=== PATIENT | male | born 1995 | race Caucasian/White ===

== ENCOUNTER 2020-06-14 16:59 | Outpatient (REF) | payer BC, SELFPAY ==
[2020-06-17 01:50] LABS: Patient Race White; SARS-CoV-2 RNA Undetected (Undetected)
== END 2020-06-14 17:19 ==
LOC: NCHCN 16:59
PROVIDERS: PCP Nurse Practitioner Family; Visit Provider Nurse Practitioner Family
DX: Z20.828 Contact with and (suspected) exposure to other viral communicable diseases (principal)
CPT/HCPCS: U0003

== ENCOUNTER 2021-11-22 10:18 | Emergency (ER) | payer BC, SELFPAY ==
[2021-11-22 10:22] VITALS: BP 143/88; PULSE 82; RESP 16; TEMP 37; O2SAT 99
--- NOTE | 2021-11-22 10:45 | DI.CT_ITS ---
Exam(s) CT HEAD WO EXAM: CT HEAD WO CLINICAL HISTORY: Bilateral temporal head. TECHNIQUE: Imaging Protocol: Axial computed tomography images with coronal and sagittal reformatted images were created and reviewed COMPARISON: No exams were available for comparison FINDINGS: Ventricles and Extra axial spaces: Normal in size and morphology for the patient's age. Hemorrhage: None. Cerebral parenchyma: Normal. Midline shift: None. Brainstem/Cerebellum: Normal. Calvarium: Normal. Visualized Paranasal sinuses/Mastoids: Mucosal thickening in the maxillary sinuses bilaterally. Ther e are mucous retention cysts or polyps in the maxillary sinuses bilaterally. The remaining visualize d paranasal sinuses and mastoid air cells are clear. Soft Tissues: Unremarkable. IMPRESSION: 1. No acute intracranial process. 2. Bilateral maxillary sinus disease. 3. Results of this exam have been verbally communicated with provider. RADIATION DOSE DELIVERED: 784.55mGy.cm Total DLP DATA REPOSITORY: All CT scans at this facility are submitted to the National Radiology Data Registry (NRDR) Dose Index Registry (DIR) with the [employer] (ACR). RADIATION OPTIMIZATION: All CT scans at this facility use at least one of these dose optimization te chniques: automated exposure control; mA and/or kV adjustment per patient size (includes targeted exa ms where dose is matched to clinical indication); or iterative reconstruction.
--- NOTE | 2021-11-22 10:48 | ED.GENADUL_ITS ---
Discharge Plan Disposition Patient Disposition: HOME Condition: Stable Discharge Details Chief Complaint: Headache Clinical Impression: Cephalgia Primary Care Provider: Ibrahima Casey ED Provider: Angus Howard Home Meds and New Rx's Prescriptions: No Action No Known Home Meds 0RF Discharge Instructions Instructions: General Headache (ED) Additional Instructions: Laboratory values and CT imaging are both unremarkable for any obvious emergent process. I recommend [id number] medications as directed for symptomatic control. Please watch for new or worsening symptoms and return to the ER for any concerns. I provided you with the name and contact information for our local neurology team whom I recommend you contact discuss your ongoing symptoms and set up outpatient appointment for reevaluation and further investigation of your current symptoms. Referrals: Parisa Parker MD [ [facility] STAFF PHYSICIAN] - Medical Decision Making 26-year-old gentleman, denies significant past medical history, presenting to the ER reporting intermittent headache for at least 3 weeks. Tylenol helps some. He states today he looked in the mirror and thought that his bilateral temporal area looked sunken in. He reports discomfort is a dull ache, 2 or 3 out of 10. He denies any recent illness or trauma, visual change, neck pain, chest pain, shortness of breath, vomiting, numbness, tingling, weakness, change in bowel or bladder function. Patient denies any family history of TIA, diss ection, migraines, etc. Clinically he appears well, nontoxic and is neurologically intact. Given he reports bilateral temporal pain, will obtain routine laboratory values including inflammatory markers although extremely low suspicion for temporal arteritis. Low suspicion for acute intracranial process but given he has never had a work-up for cephalgia in the past, will obtain CT imaging of the head as well. If both unremarkable, will recommend [id number] medications such as Excedrin Migraine and outpatient neurology follow-up. Patient comfortable with this plan and has no additional questions or concerns Patient remains neurologically intact. He appears well, nontoxic. Upon reevaluation he reports that the Motrin has maybe helped a little with discomfort. He is using his cell phone without difficulty. Laboratory values are grossly unremarkable. CT imaging unremarkable for acute intracranial process. Does have sinus disease clinically not presenting with symptoms consistent of sinusitis Discussed laboratory values and CT imaging with patient. He is relieved, has no additional questions or concerns. Will use [id number] medications for symptomatic control and plans to follow-up with neurology. Standard discharge and return precautions were provided This documentation was generated using [employer] dictation system, please disregard any oddities of phrase or misspellings. Medical Records Medical records reviewed: Yes I reviewed the patient's medical records. Imaging Data Radiologic Study: Attestation: I personally reviewed and interpreted this imaging study as follows: Imaging: CT Scan Radiologist's impression: This report is currently processing and HAS NOT BEEN OFFICIALLY SIGNED BY THE PHYSICIAN - ESTIMATED TIME OF APPROVAL IS 11/22/2021 12:35. Exam(s) CT HEAD WO EXAM: CT HEAD WO CLINICAL HISTORY: Bilateral temporal head. TECHNIQUE: Imaging Protocol: Axial computed tomography images with coronal and sagittal reformatted images were created and reviewed COMPARISON: No exams were available for comparison FINDINGS: Ventricles and Extra axial spaces: Normal in size and morphology for the patien t's age. Hemorrhage: None. Cerebral parenchyma: Normal. Midline shift: None. Brainstem/Cerebellum: Normal. Calvarium: Normal. Visualized Paranasal sinuses/Mastoids: Mucosal thickening in the maxillary sinuses bilaterally. There are mucous retention cysts or polyps in the maxillary sinuses bilaterally. The remaining visualized paranasal sinuses and mastoid air cells are clear. Soft Tissues: Unremarkable. IMPRESSION: 1. No acute intracranial process. 2. Bilateral maxillary sinus disease. 3. Results of this exam have been verbally communicated with provider. Lab Data Lab results reviewed: Yes I reviewed the patient's lab results. Labs: Laboratory Tests Range/Units 11/22/21 11/22/21 11/22/21 10:57 10:57 10:57 WBC (4.4-10.8) 10^3/uL 4.83 RBC (4.36-5.78) 10^6/uL 4.66 Hgb (13.5-17.5) g/dL 14.5 Hct (40.0-50.0) % 40.5 MCV (80-95) fL 86.9 MCH (27.0-33.0) pg 31.1 MCHC (32.0-36.0) % 35.8 RDW (11.8-14.1) % 11.9 Plt Count (130-400) 10^3/uL 215 MPV (8.0-11.0) fL 9.2 Immature Gran % 0.4 Neutrophils % 57.6 Lymphocytes % 29.0 Monocytes % 7.0 Eosinophils % 5.8 Basophils % 0.2 Nucleated RBC % (0.0-0.3) % 0.0 Absolute Neutrophils (1.2-6.7) 10^3/uL 2.78 Absolute Lymphocytes (1.2-3.4) 10^3/uL 1.40 Absolute Monocytes (0.1-0.8) 10^3/uL 0.34 Absolute Eosinophils (0.0-0.7) 10^3/uL 0.28 Absolute Basophils (0.0-0.2) 10^3/uL 0.01 ESR (0-15) mm/hr < 1 Sodium (136-145) mmol/L 139 Potassium (3.5-5.1) mmol/L 3.9 Chloride (98-107) mmol/L 106 Carbon Dioxide (21.0-32.0) mmol/L 27.2 Anion Gap (3-11) mmol/L 5.8 BUN (7-18) mg/dL 11 Creatinine (0.70-1.30) mg/dL 0.8 Estimated GFR/1.73 m2 (mL/min/1.73m2) >= 60.00 Glucose (74-106) mg/dL 96 Calcium (8.5-10.1) mg/dL 8.6 Total Bilirubin (0.2-1.0) mg/dL 0.5 AST (15-37) U/L 14 L ALT (16-63) U/L 26 Alkaline Phosphatase (46-116) U/L 59 C-Reactive Protein (0.0-0.3) mg/dL 0.06 Total Protein (6.4-8.2) g/dL 7.3 Albumin (3.4-5.0) g/dL 4.1 HPI General Mode of arrival: ambulatory . Date/Time Provider Initiated Documentation: 11/22/21 10:24 . Limitations to Documentation: no limitations . Information obtained by: patient . History of Present Illness 26 year old M presents to the emergency department with the chief complaint of Headache, described as mild, with intensity rated at 3. Quality is described as aching and other (Throbbing), and is localized to the head (Bilateral temporal). Patient reports no radiation. Patient started experiencing this week(s) (3) and it has been intermittent. improves with Medication improves symptom(s), No exacerbating factors reported . Patient notes nausea/vomiting (Nausea no vomiting). Patient did receive the following treatments prior to arrival, other (Acetaminophen) Related Data Home Medications Medication Instructions Recorded Confirmed Unknown [No Known Home Meds] 11/22/21 11/22/21 Allergies Allergy/AdvReac Type Severity Reaction Status Date / Time erythromycin ethylsuccinate Allergy Mild Skin Rash Verified 11/22/21 10:26 [From Pediazole] sulfisoxazole acetyl Allergy Mild Skin Rash Verified 11/22/21 10:26 [From Pediazole] pine tree pollen AdvReac Mild itchy,red Uncoded 11/22/21 10:26 eyes General Stated Complaint: Headache LORI: 4 Review of Systems Constitutional Constitutional: Denies fever(s), Reports headache(s) and Denies weakness Eyes Eyes: Denies change in vision ENT Ears, Nose, Mouth, and Throat: Reports headache(s) Cardiovascular Cardiovascular: Denies chest pain and Denies dyspnea Respiratory Respiratory: Denies cough and Denies dyspnea Gastrointestinal Gastrointestinal: Denies abdominal pain, Reports nausea and Denies vomiting Musculoskeletal Musculoskeletal: Denies numbness and Denies tingling Integumentary/Breasts Skin/Breast: Denies rash Neurologic Neurologic: Reports headache(s), Denies numbness, Denies tingling and Denies weakness PFSH All Active Problems (Updated 11/22/21 @ 12:34 by JUAN F Arias) Cephalgia (Acute) Medical History Bilateral impacted cerumen Surgical History Tonsillectomy and adenoidectomy Social History Smoking/Tobacco Use Status: Current-Occasional Tobacco Type: cigarettes Smoking risk assessment performed?: Yes Alcohol Intake: current Alcohol Intake frequency: a few times a month Alcohol type: beer Drug use: Occasionally Substance use type: marijuana Do you feel safe at home: Yes Do you feel safe in your relationship?: Yes Exam Const General: cooperative, healthy appearing, comfortable and no acute distress Orientation: alert, awake and oriented x3 HENMT Head: normal to inspection, no palpable skull fracture, normocephalic and atraumatic Ears: hearing grossly normal bilaterally and unable to visualize TM bilaterally (Only partially visualized secondary to cerumen, otherwise normal) Face and sinus: normal facial exam Mouth: oral mucosae normal and moist mucous membranes Eyes General: appearance normal, both eyes and all related structures Alignment and Position: alignment normal Periorbital: periorbital findings normal Eyelids: eyelids normal Conjunctivae: conjunctivae normal Sclera: sclerae normal Cornea: corneas normal Pupils: PERRL EOM: EOM intact bilaterally Direct ophthalmoscopy: normal light reflex Neck Neck: normal visual inspection, full ROM, no meningeal signs, trachea midline, supple and nontender Resp Effort & Inspection: normal respiratory effort and able to speak in complete sentences Auscultation: clear to auscultation bilaterally Cardio Rate: regular rate Rhythm: regular rhythm Back/Spine/Pelvis Back: No back tenderness Skin General skin exam: no rashes or lesions noted Neuro General: patient alert, patient awake, patient oriented x3, moves all extremities and no focal motor deficits Cranial Nerves: CN's II-XI intact bilaterally Cognition: normal cognition Speech: speech normal Gait: normal gait Motor: muscle tone normal throughout, strength 5/5 throughout, no movement abnormalities noted and no fasciculations Sensory Exam: no sensory deficits noted Extrem General: normal to inspection and full ROM Psych Appearance: grossly normal Mental Status: mental status grossly normal Course Vital Signs Vital signs: Vital Signs Temperature 37 C 11/22/21 10:22 Pulse 82 11/22/21 10:22 Respiratory Rate 16 11/22/21 10:22 Blood Pressure 143/88 H 11/22/21 10:22 Pulse Oximetry 99 11/22/21 10:22 Temperature 37 C 11/22/21 10:22 Pulse 82 11/22/21 10:22 Respiratory Rate 16 11/22/21 10:22 Respiratory Effort Non-Labored 11/22/21 10:30 Blood Pressure 143/88 H 11/22/21 10:22 Pulse Oximetry 99 11/22/21 10:22 Pain Level 4 11/22/21 10:30 PAWSS Have you Been Recently Intoxicated or Drunk Within the Last 30 days?: Yes Have you Ever Experienced Previous Episodes of Alcohol Withdrawal?: No Have you ever Experienced Withdrawal Seizures?: No Have you ever Experienced Delirium Tremens(DT)s?: No Have you ever undergone Alcohol Rehabilitation Treatment (i.e, inpt ot outpatient treatment programs)?: No Have you ever Experienced Blackouts?: No Have you ever Combined Alcohol with other Downers within the last 90 days?: No Have you ever Combined Alcohol with any other Substance of Abuse during the last 90 days?: No Result: 1
[2021-11-22] MEDS: Ibuprofen 800 MG TAB PO (10:53)
[2021-11-22 11:03] LABS: Abs Immature Grans 0.02 10^3/uL (0.0-0.06); Absolute Basophil Count 0.01 10^3/uL (0.0-0.2); Absolute Eosinophil Count 0.28 10^3/uL (0.0-0.7); Absolute Monocyte Count 0.34 10^3/uL (0.1-0.8); Absolute Neutrophil Count 2.78 10^3/uL (1.2-6.7); Basophils % 0.2; Eosinophils % 5.8; HCT 40.5 % (40.0-50.0); HGB 14.5 g/dL (13.5-17.5); Immature Grans % 0.4; MCH 31.1 pg (27.0-33.0); MCHC 35.8 % (32.0-36.0); MCV 86.9 fL (80-95); MPV 9.2 fL (8.0-11.0); Neutrophils % 57.6; Platelet Count 215 10^3/uL (130-400); RBC 4.66 10^6/uL (4.36-5.78); RDW 11.9 % (11.8-14.1); RDW-SD 37.8 fL; WBC 4.83 10^3/uL (4.4-10.8)
[2021-11-22 11:09] LABS: ESR < 1 mm/hr (0-15)
[2021-11-22 11:22] LABS: ALT 26 U/L (16-63); AST 14 U/L (15-37); Albumin 4.1 g/dL (3.4-5.0); Alkaline Phosphatase 59 U/L (46-116); Anion Gap 5.8 mmol/L (3-11); BUN 11 mg/dL (7-18); Bilirubin, Total 0.5 mg/dL (0.2-1.0); C-Reactive Protein 0.06 mg/dL (0.0-0.3); CO2 27.2 mmol/L (21.0-32.0); CREATININE 0.8 mg/dL (0.70-1.30); Calcium 8.6 mg/dL (8.5-10.1); Chloride 106 mmol/L (98-107); Glucose 96 mg/dL (74-106); Potassium 3.9 mmol/L (3.5-5.1); Sodium 139 mmol/L (136-145); Total Protein 7.3 g/dL (6.4-8.2)
[2021-11-22 12:40] VITALS: BP 130/82; PULSE 86; RESP 16; TEMP 36.9; O2SAT 99
== END 2021-11-22 12:38 | disposition home or self-care (01) ==
PROVIDERS: Emergency Provider Physician Assistant; PCP Physician Assistant
DX: R51.9 Headache, unspecified (principal)
CPT/HCPCS: 36415; 80053; 85652; 99284; 70450; 85025; 86140; 99283

== ENCOUNTER 2022-01-21 10:52 | Emergency (ER) | payer BC, SELFPAY ==
[2022-01-21 10:55] VITALS: BP 131/55; PULSE 61; RESP 18; TEMP 36.8; O2SAT 98
--- NOTE | 2022-01-21 10:58 | ED.GENADUL_ITS ---
Discharge Plan Disposition Patient Disposition: HOME Condition: Stable Discharge Details Clinical Impression: Closed head injury with brief loss of consciousness Primary Care Provider: Ibrahima Casey ED Provider: Katherine Coelho Home Meds and New Rx's Prescriptions: No Action No Known Home Meds Discharge Instructions Instructions: Head Injury (ED) Additional Instructions: Your CT imaging today is negative for any acute concerning or significant findings. Drink plenty of fluids and get plenty of rest. Alternate tylenol and motrin as needed and directed for pain. Follow-up with your primary care doctor in 1 week. Return to the emergency department with any worsening or new concerning symptoms. Discharge Data Discharge Physician: Katherine Coelho Medical Decision Making 26-year-old male with a history of tension headaches presents with worsening hea dache since a head injury 2 weeks ago in which he slipped striking his head on a door with brief LOC. Patient appears comfortable and nontoxic. He has no focal deficits on exam. There is no evidence of head trauma. Differential diagnosis includes postconcussive syndrome, dehydration, viral illness. Do not see an indication for COVID testing. Offered to place an IV with medication but he declined stating he would only like a CT scan of his head. CT head ordered. He has no midline C-spine tenderness so do not think indication for cervical spine CT. CT negative for acute findings. Patient feels comfortable going home. He was advised to increase fluids, rest, alternating Tylenol and Motrin and limit screen time if this improves his symptoms. Advised to follow up with the primary care doctor for re-evaluation. Usual and customary return precautions given prior to discharge. Medical Records Medical records reviewed: Yes I reviewed the patient's medical records. Imaging Data Radiologic Study: Radiologist's impression: CT Head Without Contrast Exam date and time: 01/21/2022 11:30 AM Age: 26 years old Clinical indication: Injury or trauma; Other: Hit head; Blunt trauma (contusions or hematomas); Consciousness not specified TECHNIQUE: Imaging protocol: Computed tomography of the head without contrast. COMPARISON: CT HEAD WO 11/22/2021 11:30 AM FINDINGS: Brain: The cerebral sulci and the ventricles are within normal limits. There is no evidence of acute hemorrhage, mass or shift. There is no evidence of an acute cortical or major vascular territory infarct. No abnormal extra-axial collections are identified. Cerebral ventricles: No significant ventricular enlargement/hydrocephalus. Paranasal sinuses: The sinus mucoperiosteal thickening is noted in the maxillary antra with retention cysts. This was previously identified. No new sinus opacification is identified. Mastoid air cells: No significant mastoid opacification Bones/joints: There is no acute bony abnormality Soft tissues: Subcutaneous soft tissues are unremarkable IMPRESSION: 1. No acute findings. 2. Sinus disease also previously noted. HPI General Mode of arrival: ambulatory . Date/Time Provider Initiated Documentation: 01/21/22 10:56 . Limitations to Documentation: no limitations . Information obtained by: patient . HPI Narrative: Patient is a 26-year-old male who presents with a complaint of headache for the past 2-week status post a head injury. Patient states he gets frequent headaches at baseline and has seen his primary care doctor for this and diagnosed with tension headaches. He states 2 weeks ago he was walking out of a hotel room when he slipped and struck the back of his head on door. He states he thinks he passed out for few seconds and then awoke and was able to ambulate. He states since then he has had a headache bitemporal and posterior aspects of his head where he had direct injury. He denies any fever, sore throat, ear pain, nausea, vomiting, neck pain or other injuries. He states he took cold and sinus medication this morning for his symptoms but he denies any specific cold symptoms. He states his headache is currently 2/10. Related Data Home Medications Medication Instructions Recorded Confirmed Unknown [No Known Home Meds] 11/22/21 11/22/21 Allergies Allergy/AdvReac Type Severity Reaction Status Date / Time erythromycin ethylsuccinate Allergy Mild Skin Rash Verified 11/22/21 10:26 [From Pediazole] sulfisoxazole acetyl Allergy Mild Skin Rash Verified 11/22/21 10:26 [From Pediazole] pine tree pollen AdvReac Mild itchy,red Uncoded 11/22/21 10:26 eyes General Stated Complaint: Headache LORI: 4 Review of Systems All systems reviewed & are unremarkable except as noted in HPI and below Constitutional Constitutional: Denies chills, Denies excessive sweating, Denies fatigue, Denies fever(s), Reports headache(s), Denies weakness and Denies weight loss Eyes Eyes: Reports system reviewed and no additional complaints, except as documented and Denies blurry vision ENT Ears, Nose, Mouth, and Throat: Denies vertigo, Denies dizziness, Denies otalgia, Reports headache(s), Denies nasal congestion, Denies sore throat and Denies throat swelling Cardiovascular Cardiovascular: Denies chest pain, Denies syncope, Denies rapid heart rate and Denies dyspnea Respiratory Respiratory: Denies chest congestion, Denies cough, Denies pain on inspiration and Denies dyspnea Gastrointestinal Gastrointestinal: Denies abdominal pain, Denies diarrhea and Denies vomiting Genitourinary Genitourinary: Denies hematuria, Denies dysuria and Denies flank pain Musculoskeletal Musculoskeletal: Denies back pain and Denies joint swelling Integumentary/Breasts Skin/Breast: Denies lesions and Denies rash Neurologic Neurologic: Denies behavioral changes, Denies confusion, Denies vertigo, Denies dizziness, Denies syncope, Reports headache(s), Denies localized weakness and Denies weakness Psychiatric Psychiatric: Denies behavioral changes, Denies confusion and Denies depression Endocrine Endocrine: Denies excessive sweating and Denies fatigue Hematologic/Lymphatic Hematologic/Lymphatic: Denies easy bruising and Denies lymphadenopathy Allergic/Immunologic Allergic/Immunologic: Denies throat swelling PFSH All Active Problems (Updated 01/21/22 @ 12:06 by Katherine Coelho DO) Closed head injury with brief loss of consciousness (Acute) Medical History Bilateral impacted cerumen Surgical History Tonsillectomy and adenoidectomy Social History Smoking/Tobacco Use Status: Current-Occasional Tobacco Type: cigarettes Smoking risk assessment performed?: Yes Alcohol Intake: current Alcohol Intake frequency: a few times a month Alcohol type: beer Drug use: Occasionally Substance use type: marijuana Do you feel safe at home: Yes Do you feel safe in your relationship?: Yes Exam Const General: cooperative and healthy appearing Orientation: alert, awake and oriented x3 HENMT Head: normal to inspection Ears: hearing grossly normal bilaterally, external ears normal and TM's normal bilaterally General nose exam: external nose normal Face and sinus: normal facial exam Mouth: oral mucosae normal Teeth and gingiva: dentition normal Throat: posterior oropharynx normal Eyes General: appearance normal, both eyes and all related structures Eyelids: eyelids normal Pupils: PERRL EOM: EOM intact bilaterally Neck Neck: normal visual inspection Lymphatic: no lymphadenopathy noted Chest Chest: normal inspection of the chest Resp Effort & Inspection: normal respiratory effort and able to speak in complete sentences Auscultation: clear to auscultation bilaterally Cardio Rate: regular rate Rhythm: regular rhythm Back/Spine/Pelvis Cervical Spine: cervical ROM normal and No cervical spinal tenderness Skin General skin exam: no rashes or lesions noted Neuro General: patient alert, patient awake, patient oriented x3, gait normal, moves all extremities, no meningeal signs and no focal motor deficits Cognition: normal cognition Speech: speech normal Gait: normal gait Motor: muscle tone normal throughout and strength 5/5 throughout Sensory Exam: no sensory deficits noted Extrem General: normal to inspection, full ROM, capillary refill normal and no edema Psych Appearance: grossly normal Mental Status: mental status grossly normal Speech and Movement: speech and movement normal Affect: normal affect Thought Process: normal
--- NOTE | 2022-01-21 11:15 | DI.CT_ITS ---
Exam(s) CT HEAD WO EXAM: CT HEAD WO CLINICAL HISTORY: headache s/p head injury. TECHNIQUE: Imaging Protocol: Axial computed tomography images with coronal and sagittal reformatted images were created and reviewed COMPARISON: CT CT HEAD WO from 11/22/2021 FINDINGS: There are no skull fractures nor fluid in the visualized paranasal sinuses. Mucosal thickening in t he maxillary sinuses and retention cysts again noted, unchanged. No associated fluid levels in the p aranasal sinuses. There is no evidence of intracranial hemorrhage, mass effect, or shift of midline structures. There are no extra-axial fluid collections. The ventricles are not enlarged or shifted and there is no blo od within the ventricular system nor within the basal cisterns. IMPRESSION: No acute intracranial findings on this noninfused CT scan of the brain. Paranasal sinus findings as described above, unchanged from 11/22/2021. RADIATION DOSE DELIVERED: 794.02mGy.cm Total DLP DATA REPOSITORY: All CT scans at this facility are submitted to the National Radiology Data Registry (NRDR) Dose Index Registry (DIR) with the [employer] (A[employer]). RADIATION OPTIMIZATION: All CT scans at this facility use at least one of these dose optimization te chniques: automated exposure control; mA and/or kV adjustment per patient size (includes targeted exa ms where dose is matched to clinical indication); or iterative reconstruction.
--- NOTE | 2022-01-21 11:50 | DI.VRAD_ITS ---
PROCEDURE INFORMATION: Exam: CT Head Without Contrast Exam date and time: 01/21/2022 11:30 AM Age: 26 years old Clinical indication: Injury or trauma; Other: Hit head; Blunt trauma (contusions or hematomas); Consciousness not specified TECHNIQUE: Imaging protocol: Computed tomography of the head without contrast. COMPARISON: CT HEAD WO 11/22/2021 11:30 AM FINDINGS: Brain: The cerebral sulci and the ventricles are within normal limits. There is no evidence of acute hemorrhage, mass or shift. There is no evidence of an acute cortical or major vascular territory infarct. No abnormal extra-axial collections are identified. Cerebral ventricles: No significant ventricular enlargement/hydrocephalus. Paranasal sinuses: The sinus mucoperiosteal thickening is noted in the maxillary antra with retention cysts. This was previously identified. No new sinus opacification is identified. Mastoid air cells: No significant mastoid opacification Bones/joints: There is no acute bony abnormality Soft tissues: Subcutaneous soft tissues are unremarkable IMPRESSION: 1. No acute findings. 2. Sinus disease also previously noted. Dictated and Authenticated by: Arline Merino MD. Ordering:MEGAN Murphy MD
== END 2022-01-21 12:24 | disposition home or self-care (01) ==
PROVIDERS: Emergency Provider Physician Assistant; PCP Physician Assistant
DX: S06.9X9A Unspecified intracranial injury with loss of consciousness of unspecified duration, initial encounter (principal); F17.210 Nicotine dependence, cigarettes, uncomplicated; W01.190A Fall on same level from slipping, tripping and stumbling with subsequent striking against furniture, initial encounter; Y93.01 Activity, walking, marching and hiking; Y92.59 Other trade areas as the place of occurrence of the external cause
CPT/HCPCS: 99284; 70450

== ENCOUNTER 2022-02-10 17:25 | Outpatient (REF) | payer BC, SELFPAY ==
[2022-02-12 11:36] LABS: COVID-19 RT-PCR UVMMC Result Negative (Negative)
== END 2022-02-10 17:26 | disposition home or self-care (01) ==
LOC: LBN 17:25
PROVIDERS: PCP Physician Assistant; Visit Provider Physician Assistant Medical
DX: J02.9 Acute pharyngitis, unspecified (principal); Z20.822 Contact with and (suspected) exposure to COVID-19
CPT/HCPCS: U0003; 87070